=== PATIENT | female | born 1965 | race Caucasian/White ===

== ENCOUNTER 2017-01-05 19:55 | Emergency (ER) | payer BC, OTHER ==
[~2017-01-05] VITALS: Ht 152.4 cm; Wt 59.0 kg
[2017-01-05 20:44] VITALS: Ht 152.4 cm; Wt 59.0 kg
[2017-01-05] MEDS ORDERED: SOD CHLORIDE 0.9% 1,000 ML IV STA (22:02)
[2017-01-05] MEDS ORDERED: morphine 4 MG/ML VIAL IV STA (22:02)
[2017-01-05] MEDS ORDERED: ONDANSETRON 4 MG INJ IV STA (22:02)
[2017-01-05] MEDS ORDERED: ACETAMINOPHEN 500 MG TAB PO STA (22:11)
--- NOTE | 2017-01-05 22:11 | ERD ---
ER Documentation Chief Complaint Date/Time DATE: 01/05/17 TIME: 22:04 Chief Complaint AP x3 days. poss Cholecystitis per Clinic HPI Patient is a 51-year-old female who presents to the emergency department with right upper quadrant pain 3 days. Patient states that she was sent here by her primary care physician for concerns of acute cholecystitis versus pyelonephritis. Patient states that she had a temperature of 103 Fahrenheit today. Patient was given ibuprofen 800 mg at approximately 8pm while at PCPs office. Patient states that she has had tactile fevers at home. Patient denies any nausea or vomiting. Patient states that her pain is localized to the right upper quadrant. Pain does not radiate. Patient does report some pain with urination however she denies any blood in her urine or frequency. She denies any rectal bleeding or diarrhea. She denies any chest pain, shortness of breath , diaphoresis, arm pain, jaw pain. Patient is currently on her menstrual period. ROS All systems reviewed and are negative except as per history of present illness. Medications Home Meds Active Scripts Ciprofloxacin Hcl* (Ciprofloxacin Hcl*) 500 Mg Tablet, 500 MG PO BID for 10 Days , TAB Prov:EDSON POWERS PA-C 01/06/17 Ibuprofen* (Motrin*) 600 Mg Tab, 600 MG PO Q6, #30 TAB Prov:EDSON POWERS PA-C 01/06/17 Allergies Allergies: Coded Allergies: No Known Allergy (Unverified , 01/05/17) PMhx/Soc History of Surgery: Yes (c section) Hx Neurological Disorder: No Hx Respiratory Disorders: No Hx Cardiac Disorders: No Hx Psychiatric Problems: No Hx Miscellaneous Medical Probl: No Hx Alcohol Use: No Hx Substance Use: No Hx Tobacco Use: No FmHx Family History: No diabetes Physical Exam Vitals Vital Signs Date Time Temp Pulse Resp B/P Pulse Ox O2 Delivery O2 Flow Rate FiO2 01/06/17 01:55 98.4 94 18 113/70 98 Room Air 01/05/17 20:44 100.5 107 18 109/65 98 Physical Exam GENERAL: Well-developed, well-nourished female. Appears in no acute distress. HEAD: Normocephalic, atraumatic. EYES: Pupils are equally reactive bilaterally. EOMs grossly intact. No conjunctival erythema. ENT: Moist mucous membranes. No uvula deviation. No kissing tonsils. NECK: Supple. No lymphadenopathy or thyromegaly. No meningismus. LUNG: Clear to auscultation bilaterally. No rhonchi, wheezing, rales or coarse breath sounds. HEART: Regular rate and rhythm. No murmurs, rubs or gallops. ABDOMEN: No scars, ecchymosis or rashes noted. Soft, and nondistended. Tender to palpation in the right upper quadrant and epigastric region. Positive bowel sounds in all four quadrants. No rebound tenderness, no guarding. (-) McBurneys point tenderness. No CVA tenderness. BACK: No midline tenderness. EXTREMITIES: Equal pulses bilaterally. No peripheral clubbing, cyanosis or edema. No unilateral leg swelling. NEUROLOGIC: Alert and oriented. Moving all four extremities without any difficulty. Normal speech. Steady gait. SKIN: Normal color. Warm and dry. No rashes or lesions. Result Diagram: 01/05/177 01/05/17 2227 Results 24 hrs Laboratory Tests Test 01/05/17 22:27 Alanine Aminotransferase (ALT/SGPT) 75IU/L Albumin 4.1g/dl Albumin/Globulin Ratio 1.05 Alkaline Phosphatase 178IU/L Anion Gap 19 Aspartate Amino Transf (AST/SGOT) 52IU/L Basophils # 0.010^3/ul Basophils % 0.3% Blood Urea Nitrogen 6mg/dl Calcium Level 9.0mg/dl Carbon Dioxide Level 28mmol/L Chloride Level 98mmol/L Creatinine 0.63mg/dl Direct Bilirubin 0.00mg/dl Eosinophils # 0.210^3/ul Eosinophils % 1.3% Globulin 3.90g/dl Glucose Level 112mg/dl Hematocrit 36.9% Hemoglobin 12.1g/dl Indirect Bilirubin 0.3mg/dl Lipase 48U/L Lymphocytes # 2.010^3/ul Lymphocytes % 13.7% Mean Corpuscular Hemoglobin 27.1pg Mean Corpuscular Hemoglobin Concent 32.8g/dl Mean Corpuscular Volume 82.7fl Mean Platelet Volume 11.6fl Monocytes # 1.010^3/ul Monocytes % 6.9% Neutrophils # 11.310^3/ul Neutrophils % 77.3% Nucleated Red Blood Cells # 0.010^3/ul Nucleated Red Blood Cells % 0.0/100WBC Platelet Count 76503^3/UL Potassium Level 3.7mmol/L Red Blood Count 4.4610^6/ul Red Cell Distribution Width 15.2% Sodium Level 141mmol/L Total Bilirubin 0.3mg/dl Total Protein 8.0g/dl Urine Bilirubin NEGATIVE Urine Clarity CLEAR Urine Color LT. YELLOW Urine Glucose NEGATIVE% Urine Hemoglobin 3+ Urine Ketones NEGATIVE Urine Leukocyte Esterase TRACE Urine Microscopic RBC 5-10/HPF Urine Microscopic WBC 2-5/HPF Urine Nitrite NEGATIVE Urine Specific [place] <=1.005 Urine Squamous Epithelial Cells FEW Urine Total Protein NEGATIVE Urine Urobilinogen 0.2 E.U./dL Urine pH 6.5 White Blood Count 14.610^3/ul Current Medications Medications (Trade) Dose Ordered Sig/Scot Route PRN Reason Start Time Stop Time Status Last Admin Dose Admin Sodium Chloride (NS) 1,000 ml @ 1,000 mls/hr Q1H STAT IV 01/05/17 22:02 01/05/17 23:01 DC 01/05/17 22:26 Morphine Sulfate (morphine) 4 mg ONCE STAT IV 01/05/17 22:02 01/05/17 22:05 DC Ondansetron HCl (Zofran Inj) 4 mg ONCE STAT IV 01/05/17 22:02 01/05/17 22:05 DC 01/05/17 22:26 Acetaminophen (Tylenol Tab) 1,000 mg ONCE STAT PO 01/05/17 22:11 01/05/17 22:12 DC 01/05/17 22:28 Procedures/MDM ED COURSE: The patient was stable throughout ED course. I kept the patient and/or family informed of laboratory and diagnostic imaging results throughout the ED course. DIAGNOSTIC IMAGING: Read by radiologist. DIAGNOSTIC IMAGING REPORT Patient: BRIDGET DIAZ : 1965 Age: 51 Sex: F MR #: [id number] DOS: 01/05/172201 Ordering MD: EDSON POWERS PA-C Location: [facility] Room/Bed: PROCEDURE: US Abdomen Right Upper Quadrant. CLINICAL INDICATION: Abdominal pain TECHNIQUE: Multiple real-time longitudinal and transverse images were acquired of the patient's right upper quadrant abdomen utilizing a curved array transducer. COMPARISON: None FINDINGS: Liver: The liver is enlarged with the sagittal diameter right lobe measuring 17.1 cm. The liver is diffusely echogenic with no focal lesion identified. The portal veins are patent and there is antegrade flow of the main portal vein. Gallbladder: Appears unremarkable and no stones are identified. There is no pericholecystic fluid. Bile ducts: There is no significant intra or extrahepatic bile duct dilatation. No choledocholiths are seen within the visualized portions. The common bile duct measures 3.7 mm in cross diameter. Pancreas: Appears unremarkable with no mass or inflammation evident. Right adrenal : No mass is identified. Right kidney: Normal in echotexture andl in size. The right kidney measures 11.5 cm in length. No mass, pathological calcification, or hydronephrosis is evident. Peritoneum: There is no free intraperitoneal fluid IMPRESSION: 1. Normal appearing gallbladder no stones identified. The common bile duct is not dilated and the pancreas appears normal. 2. Mild hepatomegaly with diffusely increased echotexture most compatible with fatty infiltration. No focal lesion is evident. 3. The right kidney appears normal without hydronephrosis. 4. No free fluid is identified. Physician Abhinav Date Time Electronically viewed and signed by Physician Abhinav on 01/05/2017 22:45 RH/ CC: EDSON POWERS PA-C DIAGNOSTIC IMAGING REPORT Patient: BRIDGET DIAZ : 1965 Age: 51 Sex: F MR #: [id number] DOS: 01/05/17 2318 Ordering MD: EDSON POWERS PA-C Location: [facility] Room/Bed: PROCEDURE: CT ABDOMEN/PELVIS WITHOUT CONTRAST CLINICAL INDICATION: 51-year-old female with abdominal pain and febrile. TECHNIQUE: The study was performed utilizing a [employer] 64-slice CT scanner. Direct axial sections were obtained through the abdomen and pelvis without the use of intravenous contrast material. Sagittal and coronal reformations were obtained. Automated exposure control and iterative reconstruction techniques were utilized for this examination. The images were reviewed on a PACS workstation. CTD/vol = 7.6 mGy; Total Exam DLP = 406.9 mGy- cm. COMPARISON: None. FINDINGS: There is trace right basilar subsegmental atelectasis. There is no evidence for significant pleural effusion. The liver has a normal size and contour without focal areas of abnormal density. No intrahepatic nor extrahepatic biliary ductal dilatation is seen. The gallbladder demonstrates no wall thickening nor pericholecystic fluid. No biliary stones are evident. The pancreas is without areas of abnormal attenuation. The spleen is identified and has a normal size without abnormal density. The adrenal glands are unremarkable. There is minimal prominence of the right renal collecting system without evidence for robert obstructive uropathy. The left kidney is without abnormal density, calculi or nephroureterolithiasis. The urinary bladder is decompressed. There is mild retained stool within the colon without obstruction. There are multiple small scattered diverticula within the ascending colon without surrounding inflammatory changes. There is a small diverticula identified within the splenic flexure region without surrounding inflammatory changes. The appendix is visualized and is without abnormal thickening or surrounding inflammatory reaction. The uterus is anteflexed. There is no significant free fluid. The aortoiliac vessels are without aneurysmal dilatation. The osseous structures are intact. IMPRESSION: 1. Minimal prominence of the right renal collecting system without evidence for obstructive uropathy. A pyelonephritis can have this appearance. Clinical correlation is necessary. 2. Mild retained stool without obstruction. 3. Mild diverticulosis most prominently within the ascending colon. 4. No CT evidence for appendicitis. .Karsten Vasquez MD, Date Time Electronically viewed and signed by .Karsten Vasquez MD, on 01/06/2017 01:24 .M/ CC: EDSON POWERS PA-C MEDICATIONS GIVEN: IV fluids, Tylenol, Zofran Patient tolerated medication well with no adverse reactions. Patient was offered morphine however she declined it given that she stated her pain was under control with the ibuprofen and Tylenol she was given. Patient reported improvement in pain. MEDICAL DECISION MAKING: This is a 51-year-old female who presents with right upper quadrant pain 3 days. Vital signs were reviewed. Patient states that the initial presentation with a temperature of 100.5 Fahrenheit. Patient was given Tylenol here in the emergency department which did down trend her temperature. Abdominal exam revealed tenderness to palpation in the right upper quadrant and epigastric region. CBC showed no evidence of severe anemia. WBC count noted to be 14.6. CMP showed no evidence of electrolyte abnormalities, severe acidosis, alkalosis , renal failure. AST was 52, ALT 75, Alk phos was 178. Lipase showed no evidence of acute pancreatitis. UA showed trace leukocyte esterase, 2-5 microscopic WBCs, 3+ hemoglobin. Hemoglobin in urine is likely due to the fact the patient is on her menstrual cycle currently. Urine test was negative. RIght upper quadrant gallbladder ultrasound showed normal appearing gallbladder no stones identified. The common bile duct is not dilated and the pancreas appears normal. Mild hepatomegaly with diffusely increased echotexture most compatible with fatty infiltration. No focal lesion is evident. The right kidney appears normal without hydronephrosis. No free fluid is identified. Given that patient continued to complain of pain, a CT abdomen and pelvis was obtained. CT abdomen and pelvis showed minimal prominence of the right renal collecting system without evidence for obstructive uropathy. A pyelonephritis can have this appearance. Clinical correlation is necessary. Mild retained stool without obstruction. Mild diverticulosis most prominently within the ascending colon. No CT evidence for appendicitis. Upon discussing the patient's CT exam findings with her, patient stated that she recently started taking amoxicillin, self-medicating herself for her symptoms. Patient reports taking 3 doses. It is possible that this recent course of antibiotics may have started to treat her urinary infection/ pyelonephritis. The patient was advised to stop taking amoxicillin and to start taking ciprofloxacin as I will prescribe her for concerns of pyelonephritis at this time. At this time, patient's presentation is most consistent with pyelonephritis, diverticulosis, hepatomegaly and transaminitis. I have a much lower clinical concern for acute coronary syndrome, AAA, mesenteric ischemia, lower lobe pneumonia, DKA, bowel perforation, bowel obstruction, cholecystitis, choledocholithiasis, ascending cholangitis, pancreatitis, diverticulitis, nephrolithiasis, appendicitis, . PRESCRIPTIONS: Ciprofloxacin, Ibuprofen Patient was advised to increase H20 intake and fiber intake to help with diverticulosis. Patient was given GI specialist referral for further workup and management of her symptoms. DISCHARGE: At this time, patient is stable for discharge and outpatient management. I have instructed the patient to follow-up with his/her primary care physician in 1-2 days. Patient advised see a GI specialist for further management of her symptoms. Patient should have a repeat UA in 2 weeks for resolution of symptoms. I have instructed the patient to promptly return to the ER at any time for any new or worsening symptoms including increased pain, nausea, vomiting, diarrhea, fever, weakness or LOC. The patient and/or family expressed understanding of and agreement with this plan. All questions were answered. Home care instructions were provided. Departure Diagnosis: Primary Impression: Pyelonephritis Additional Impressions: Diverticulosis Diverticulosis site: unspecified location Diverticulosis bleeding: diverticulosis without bleeding Qualified Code: K57.90 - Diverticulosis of intestine without bleeding, unspecified intestinal tract location Transaminitis Hepatomegaly Condition: Stable Referrals: HO ROONEY MD, NAGARAJ M MD GORDON, RICHARD K MD LAND O'LAKESALEX MD [facility] Additional Instructions: Increasing swelling intake. Increase fiber intake. Take Tylenol for any pain. Take antibiotics as prescribed. Repeat urinalysis advised in 2 weeks to check for resolution of symptoms. Patient may need to see a GI specialist for further management and workup of her symptoms. Patient advised to return to the emergency department for any new or worsening symptoms including but not limited to abdominal pain, fever, chills, nausea, vomiting, chest pain, shortness of breath or loss of consciousness. EDSNO POWERS PA-C Jan 05, 2017 22:11
--- NOTE | 2017-01-05 22:45 | RADRPT ---
PROCEDURE: US Abdomen Right Upper Quadrant. CLINICAL INDICATION: Abdominal pain TECHNIQUE: Multiple real-time longitudinal and transverse images were acquired of the patient's [facility] upper quadrant abdomen utilizing a curved array transducer. COMPARISON: None FINDINGS: Liver: The liver is enlarged with the sagittal diameter right lobe measuring 17.1 cm. The liver is diffusely echogenic with no focal lesion identified. The portal veins are patent and there is anteg rade flow of the main portal vein. Gallbladder: Appears unremarkable and no stones are identified. There is no pericholecystic fluid. Bile ducts: There is no significant intra or extrahepatic bile duct dilatation. No choledocholiths a re seen within the visualized portions. The common bile duct measures 3.7 mm in cross diameter. Pancreas: Appears unremarkable with no mass or inflammation evident. Right adrenal : No mass is identified. Right kidney: Normal in echotexture andl in size. The right kidney measures 11.5 cm in length. No ma ss, pathological calcification, or hydronephrosis is evident. Peritoneum: There is no free intraperitoneal fluid IMPRESSION: 1. Normal appearing gallbladder no stones identified. The common bile duct is not dilated and the pancreas appears normal. 2. Mild hepatomegaly with diffusely increased echotexture most compatible with fatty infiltration. No focal lesion is evident. 3. The right kidney appears normal without hydronephrosis. 4. No free fluid is identified. Physician Abhinav Date Time Electronically viewed and signed by Physician Abhinav on 01/05/2017 22:45 /
[2017-01-05 22:54] LABS: ADD SCAN DIFF NO
[2017-01-05 22:57] LABS: ADD UMIC YES; URINE BILIRUBIN (Dip) NEGATIVE (NEGATIVE); URINE BLOOD (Dip) 3+ (NEGATIVE); URINE COLOR LT. YELLOW (YELLOW); URINE GLUCOSE (Dip) NEGATIVE (NEGATIVE); URINE KETONES (Dip) NEGATIVE (NEGATIVE); URINE LEUKOCYTE ESTERASE (Dip) TRACE (NEGATIVE); URINE NITRITE (Dip) NEGATIVE (NEGATIVE); URINE TOTAL PROTEIN (Dip) NEGATIVE (NEGATIVE); URINE UROBILINOGEN (Dip) 0.2 E.U./dL (0.1-1.0)
[2017-01-05 23:02] LABS: BASOPHILS % 0.3 % (0.0-2.0); EOSINOPHILS # 0.2 10^3/ul (0.0-0.5); EOSINOPHILS % 1.3 % (0.0-7.0); HEMATOCRIT 36.9 % (37.0-47.0); HEMOGLOBIN 12.1 g/dl (12.0-16.0); LYMPHOCYTES % 13.7 % (15.0-51.0); MEAN CORPUSCULAR HEMOGLOBIN 27.1 pg (29.0-33.0); MEAN CORPUSCULAR HGB CONC 32.8 g/dl (32.0-37.0); MEAN CORPUSCULAR VOLUME 82.7 fl (82.0-101.0); MEAN PLATELET VOLUME 11.6 fl (7.4-10.4); MONOCYTES % 6.9 % (0.0-11.0); NEUTROPHIL # 11.3 10^3/ul (1.6-7.5); NEUTROPHILS % 77.3 % (39.0-77.0); PLATELET COUNT 336 10^3/UL (140-415); RED BLOOD COUNT 4.46 10^6/ul (4.20-5.40); RED CELL DISTRIBUTION WIDTH 15.2 % (11.5-14.5); WHITE BLOOD COUNT 14.6 10^3/ul (4.8-10.8)
[2017-01-05 23:09] LABS: ALBUMIN 4.1 g/dl (3.3-4.9); POTASSIUM 3.7 mmol/L (3.5-5.1)
[2017-01-05 23:11] LABS: CREATININE 0.63 mg/dl (0.44-1.00)
[2017-01-05 23:12] LABS: ALBUMIN/GLOBULIN RATIO 1.05; BILIRUBIN,INDIRECT 0.3 mg/dl (0-1.1); BILIRUBIN,TOTAL 0.3 mg/dl (0.2-1.3)
[2017-01-05 23:17] LABS: SQUAMOUS EPITHELIAL CELL,UR FEW
--- NOTE | 2017-01-06 01:24 | RADRPT ---
PROCEDURE: CT ABDOMEN/PELVIS WITHOUT CONTRAST CLINICAL INDICATION: 51-year-old female with abdominal pain and febrile. TECHNIQUE: The study was performed utilizing a [employer] VCT 64-slice CT scanner. Direct axia l sections were obtained through the abdomen and pelvis without the use of intravenous contrast mate rial. Sagittal and coronal reformations were obtained. Automated exposure control and iterative spring nstruction techniques were utilized for this examination. [facility] CTD/vol = 7.6 mGy; Total Exam DLP = 406.9 mGy-cm. COMPARISON: None. FINDINGS: There is trace right basilar subsegmental atelectasis. There is no evidence for significant pleural effusion. The liver has a normal size and contour without focal areas of abnormal density. No intr ahepatic nor extrahepatic biliary ductal dilatation is seen. The gallbladder demonstrates no wall th ickening nor pericholecystic fluid. No biliary stones are evident. The pancreas is without areas of abnormal attenuation. The spleen is identified and has a normal size without abnormal density. The adrenal glands are unremarkable. There is minimal prominence of the right renal collecting system wi thout evidence for robert obstructive uropathy. The left kidney is without abnormal density, calculi or nephroureterolithiasis. The urinary bladder is decompressed. There is mild retained stool within the colon without obstruction. There are multiple small scattered diverticula within the ascending colon without surrounding inflammatory changes. There is a small diverticula identified within the splenic flexure region without surrounding inflammatory changes. The appendix is visualized and is w ithout abnormal thickening or surrounding inflammatory reaction. The uterus is anteflexed. There is no significant free fluid. The aortoiliac vessels are without aneurysmal dilatation. The osseous st ructures are intact. IMPRESSION: 1. Minimal prominence of the right renal collecting system without evidence for obstructive uropath y. A pyelonephritis can have this appearance. Clinical correlation is necessary. 2. Mild retained stool without obstruction. 3. Mild diverticulosis most prominently within the ascending colon. 4. No CT evidence for appendicitis. .Karsten Vasquez MD, MD Date Time Electronically viewed and signed by .Karsten Vasquez MD, on 01/06/2017 01:24 .Pat
[2017-01-06] MEDS ORDERED: IBUP-1542 PO (01:41)
[2017-01-06] MEDS ORDERED: CIPR500T4 PO (01:41)
[2017-01-06 01:55] VITALS: BP 113/70; PULSE 94; RESP 18; TEMP 98.4
== END 2017-01-06 01:55 | disposition home or self-care (01) ==
LOC: FTE 19:55
DX: N12 Tubulo-interstitial nephritis, not specified as acute or chronic (principal); K57.90 Diverticulosis of intestine, part unspecified, without perforation or abscess without bleeding; R74.0 Nonspecific elevation of levels of transaminase and lactic acid dehydrogenase [LDH]; R16.0 Hepatomegaly, not elsewhere classified
CPT/HCPCS: 36415; 74176; 76705; 80053; 81001; 83690; 85025; 96374; 99285; J7030; 81003; J2270; J2405